=== PATIENT | female | born 1940 | race Caucasian/White ===

== ENCOUNTER 2017-09-08 08:52 | Inpatient (IN) | payer MEDICARE ==
[~2017-09-08] VITALS: Ht 152.4 cm; Wt 71.4 kg
[2017-09-08 09:23] VITALS: BP 150/60; PULSE 66; TEMP 97.9
[2017-09-08] MEDS ORDERED: TYLENOL 500MG500 MG PO (10:41)
[2017-09-08] MEDS ORDERED: ASPIRIN 81M81 MG/TA2 PO (10:42)
[2017-09-08] MEDS ORDERED: PRAVACHOL 40MG40 MG PO (10:43)
[2017-09-08] MEDS ORDERED: NORVASC 5MG5 MG/TAB PO (10:44)
[2017-09-08] MEDS ORDERED: HCTZ 25MG TAB25 MG PO (10:45)
[2017-09-08] MEDS ORDERED: PRINIVIL40 MG PO (10:45)
[2017-09-08 11:17] LABS: BASO % 0.5 % (0.0-2.0); EOS # 0.2 (0.0-0.7); EOS % 2.7 % (0-4.0); GRAN # 3.5 (1.4-6.5); GRAN % 59.2 % (42.2-75.2); HEMATOCRIT 36.8 % (37.0-47.0); HEMOGLOBIN 11.5 g/dl (12.5-16.0); LYMPH # 1.7 (1.2-3.4); LYMPH % 28.2 % (20.0-51.0); MEAN CELL VOLUME 89 fl (80.0-100.0); MEAN CORPUSCULAR HEMOGLOBIN 28 pg (27.0-31.0); MEAN CORPUSCULAR HGB CONC 31 g/dl (33.0-37.0); MEAN PLATELET VOLUME 9.9 fl (7.4-10.4); MONO # 0.5 (0.1-0.6); MONO % 9.1 % (1.7-9.3); PLATELET COUNT 241 K/mm3 (130-400); RED BLOOD COUNT 4.13 M/mm3 (4.10-5.30); REDCELL DISTRIBUTION WIDTH-CV 13.6 % (11.5-14.5)
[2017-09-08 11:20] LABS: BILIRUBIN,TOTAL 0.5 mg/dL (0.0-1.0); CALCIUM 9.3 mg/dL (8.4-10.2); CREATININE, serum 1.08 mg/dL (0.52-1.25); POTASSIUM 3.8 mmol/L (3.4-5.0); TOTAL PROTEIN 7.5 gm/dL (6.4-8.2)
[2017-09-08 16:49] VITALS: BP 172/70; PULSE 67; TEMP 97.9
[2017-09-08 19:38] VITALS: BP 154/53; PULSE 66; TEMP 98.2
[2017-09-08 23:55] LABS: PTH,INTACT 69.6 pg/mL (6.6-88.9)
[2017-09-09 00:55] VITALS: BP 134/50; PULSE 72; TEMP 98.2
[2017-09-09 04:20] VITALS: BP 122/55; PULSE 67; TEMP 98.2
[2017-09-09 06:57] LABS: BASO # 0.1 (0.0-0.2); BASO % 0.7 % (0.0-2.0); EOS # 0.2 (0.0-0.7); EOS % 2.7 % (0-4.0); GRAN # 5.2 (1.4-6.5); LYMPH % 24.1 % (20.0-51.0); MEAN CELL VOLUME 87 fl (80.0-100.0); MEAN CORPUSCULAR HEMOGLOBIN 28 pg (27.0-31.0); MEAN CORPUSCULAR HGB CONC 32 g/dl (33.0-37.0); MEAN PLATELET VOLUME 10.2 fl (7.4-10.4); MONO # 0.8 (0.1-0.6); MONO % 9.1 % (1.7-9.3); PLATELET COUNT 223 K/mm3 (130-400); RED BLOOD COUNT 3.94 M/mm3 (4.10-5.30); REDCELL DISTRIBUTION WIDTH-CV 13.5 % (11.5-14.5)
[2017-09-09 07:03] LABS: HEMATOCRIT 34.2 % (37.0-47.0)
[2017-09-09 07:08] VITALS: BP 159/59; PULSE 72; TEMP 98.4
[2017-09-09 07:10] LABS: CALCIUM 9.1 mg/dL (8.4-10.2); CREATININE, serum 0.97 mg/dL (0.52-1.25); POTASSIUM 3.6 mmol/L (3.4-5.0)
[2017-09-09 13:00] VITALS: BP 140/55; PULSE 69; TEMP 98.3
[2017-09-09] MEDS ORDERED: CEFTIN500 MG PO (13:49)
[2017-09-09] MEDS ORDERED: K-DUR 10 MEQ T10 MEQ PO (13:50)
[2017-09-09] MEDS ORDERED: LASIX 20MG TABL20 MG PO (13:50)
== END 2017-09-09 18:04 | disposition home or self-care (01) | DRG 641 ==
LOC: MEDICAL 08:52
PROVIDERS: Physician Assistant
DX: E83.52 Hypercalcemia (principal); N39.0 Urinary tract infection, site not specified; I10 Essential (primary) hypertension; Z86.73 Personal history of transient ischemic attack (TIA), and cerebral infarction without residual deficits; R29.810 Facial weakness
CPT/HCPCS: 99223-AI; 99233-AI; 99239; A9503; A9585; J0696; J1644; Q9967

== ENCOUNTER 2020-12-20 09:51 | Inpatient (IN) | payer MEDICARE ==
[~2020-12-20] VITALS: Ht 157.5 cm; Wt 79.5 kg
[~2020-12-20 09:51] MED LIST: ASPIRIN 81M81 MG/TA2 PO; CEFTIN500 MG PO; HCTZ 25MG TAB25 MG PO; K-DUR 10 MEQ T10 MEQ PO; LASIX 20MG TABL20 MG PO; NORVASC 5MG5 MG/TAB PO; PRAVACHOL 40MG40 MG PO; PRINIVIL40 MG PO; TYLENOL 500MG500 MG PO
[2020-12-20] MEDS ORDERED: HYDRODIURIL50 MG PO (10:30)
[2020-12-20 10:39] LABS: HEMATOCRIT 41.3 % (37.0-47.0); HEMOGLOBIN 13.6 g/dl (12.5-16.0); MEAN CELL VOLUME 84 fl (80.0-100.0); MEAN CORPUSCULAR HEMOGLOBIN 28 pg (27.0-31.0); MEAN CORPUSCULAR HGB CONC 33 g/dl (33.0-37.0); MEAN PLATELET VOLUME 10.5 fl (7.4-10.4); PLATELET COUNT 211 K/mm3 (130-400); RED BLOOD COUNT 4.92 M/mm3 (4.10-5.30); REDCELL DISTRIBUTION WIDTH-CV 14.6 % (11.5-14.5)
[2020-12-20 10:53] LABS: ALBUMIN 3.7 gm/dL (3.4-4.8); BILIRUBIN,TOTAL 0.6 mg/dL (0.2-1.2); CALCIUM 8.9 mg/dL (8.4-10.2); CREATININE, serum 1.49 mg/dL (0.57-1.11); POTASSIUM 3.8 mmol/L (3.5-4.5); TOTAL PROTEIN 7.7 gm/dL (6.2-8.1)
[2020-12-20 11:13] LABS: TSH w REFLEX 1.863 uIU/mL (0.350-4.940)
[2020-12-20 11:15] LABS: BAND 3 % (0-10); LYMPHOCYTE 21 % (20.0-51.0); NEUTROPHILS 65 % (42.0-75.2); PLATELET ESTIMATE NORMAL (NORMAL)
[2020-12-20 11:16] LABS: TROPONIN-I 0.037 ng/mL (0.00-0.033)
[2020-12-20 11:53] LABS: COLLECTION METHOD CLEAN CATCH
[2020-12-20 12:18] LABS: MUCOUS Present /lpf; PH 5 (5-8); SQUAMOUS EPITHELIAL None Seen /hpf; URINE APPEARANCE Cloudy; URINE BACTERIA Moderate /hpf; URINE BILIRUBIN Negative (NEGATIVE); URINE BLOOD 1+ (NEGATIVE); URINE COLOR Yellow; URINE GLUCOSE Negative (NEGATIVE); URINE KETONE Trace (NEGATIVE); URINE LEUKOCYTE ESTERASE Negative (NEGATIVE); URINE NITRATE Negative (NEGATIVE); URINE PROTEIN(semi-quant) Negative (NEGATIVE); URINE RBC 0-2 /hpf; URINE UROBILINOGEN Negative (NEGATIVE)
[2020-12-20 12:43] LABS: PROTHROMBIN TIME 11.5 SECONDS (9.7-12.8)
[2020-12-20 12:46] LABS: PARTIAL THROMBOPLASTIN TIME 24.3 SECONDS (26.0-37.0)
--- NOTE | 2020-12-20 14:55 | NUR ---
Admission assessment completed, alert/oriented, vital signs stable, denies pain, reports general malaise and fatigue, heart RRR/distal pulses are palpable, lungs CTA/ no resp.difficulty noted and she is on room air, CT negative for PE, she denies any appetite but is tolerting PO fluid intake without any N/V, IVF started at this time through left wrist 20G IV, repeat troponin level drawn at this time, reviewed her meds/ allergies/ pharmacy, she denies other needs at this time, bed alarm on and call light in reach
[2020-12-20 16:40] VITALS: BP 136/63; PULSE 72; TEMP 98.9
[2020-12-20 19:42] VITALS: BP 172/80; PULSE 90; TEMP 97.9
--- NOTE | 2020-12-20 23:14 | NUR ---
ALERT AND OX4. DENIES SOA, CHEST PAIN OR DIZZY. PAIN IN LOWER LEGS CHRONIC. TYL GIVEN. PM MEDS GIVEN. POC DISUCCSED W PT AND SON ZINA OVER PHONE. UP TO VOID, PT VERY WEAK, COMMADE W ASST. IV FLUIDS RUNNING PER ORDER. TROP DRAWN. CALL LIGHT WI REACH. BED IN LOW POSTION. ISOLATION PRECAUTIONS FOLLOWED.
[2020-12-21] VITALS (9 sets, daily range): BP systolic 143–178; BP diastolic 57–99; PULSE 66–99; TEMP 97.4–99
--- NOTE | 2020-12-21 05:46 | NUR ---
Rested through the night without incident. Needs met.
[2020-12-21 07:22] LABS: MEAN CELL VOLUME 86 fl (80.0-100.0); MEAN CORPUSCULAR HGB CONC 32 g/dl (33.0-37.0); MEAN PLATELET VOLUME 10.2 fl (7.4-10.4); PLATELET COUNT 165 K/mm3 (130-400); RED BLOOD COUNT 3.91 M/mm3 (4.10-5.30); REDCELL DISTRIBUTION WIDTH-CV 14.7 % (11.5-14.5)
[2020-12-21 07:24] LABS: HEMATOCRIT 33.5 % (37.0-47.0); HEMOGLOBIN 10.8 g/dl (12.5-16.0); MEAN CORPUSCULAR HEMOGLOBIN 28 pg (27.0-31.0)
[2020-12-21 07:41] LABS: C-REACTIVE PROTEIN 1.6 mg/dL (0.00-0.50); CALCIUM 7.9 mg/dL (8.4-10.2); CREATININE, serum 0.98 mg/dL (0.57-1.11); MAGNESIUM 2.1 mg/dL (1.6-2.6); POTASSIUM 3.7 mmol/L (3.5-4.5)
--- NOTE | 2020-12-21 09:15 | NUR ---
Patient laying in bed upon entering the room. This RN assisted the patient with getting sat up in bed so she could eat breakfast. All morniing medications administered without difficulty, and shift assessment was completed. Patient c/o mild pain in her legs which she explains to be chronic.
--- NOTE | 2020-12-21 11:09 | NUR ---
Aids Nurse called patient and offered prayer and support.
--- NOTE | 2020-12-21 13:49 | NUR ---
Plan is to return home in [facility]. Sw met with patient about care. Patient report that her dtr Evelia Marcos resides across the street and can support her. Patient reports that she uses a walker and can. Patient dahres that her [place] [facility] [place] [facility] for medications and obtains them with out difficulty. Patient reports that she does not have any care concerns, Offered supports an educated on case management services. Will follow.
--- NOTE | 2020-12-21 18:14 | NUR ---
Patient has done well today, has required assistance to the restroom 3 times. Patient's VSS. Patient's only complaint has been about her chronic lower leg pain.
--- NOTE | 2020-12-21 20:20 | NUR ---
ALERT AND OX4. DENIES OF SOA, DIZZY OR CHEST PAIN. PAIN IN LOWER EXTREMITY BUT DENIES NEED FOR TYL. POOR APPETITE STILL AND FEELS WEAK. SON UPDATED AT SHIFT CHANGE. CALL LIGHT WI REACH. NEEDS MET.
[2020-12-22 00:16] VITALS: BP 150/69; PULSE 79; TEMP 98.7
[2020-12-22 04:20] VITALS: BP 164/76; PULSE 80; TEMP 98.5
--- NOTE | 2020-12-22 06:10 | NUR ---
RESTED THROUGH THE NIGHT WITHOUT INCIDENT. NEEDS MET.
[2020-12-22 07:43] LABS: BASO % 0.2 % (0.0-2.0); EOS % 0.2 % (0-4.0); GRAN # 2.1 K/mm3 (1.4-6.5); GRAN % 43.4 % (42.2-75.2); HEMOGLOBIN 11.2 g/dl (12.5-16.0); LYMPH # 2.1 K/mm3 (1.2-3.4); LYMPH % 44.1 % (20.0-51.0); MEAN CELL VOLUME 88 fl (80.0-100.0); MEAN CORPUSCULAR HEMOGLOBIN 28 pg (27.0-31.0); MEAN CORPUSCULAR HGB CONC 32 g/dl (33.0-37.0); MEAN PLATELET VOLUME 10.3 fl (7.4-10.4); MONO # 0.6 K/mm3 (0.1-0.6); MONO % 11.7 % (1.7-9.3); PLATELET COUNT 179 K/mm3 (130-400); RED BLOOD COUNT 4.03 M/mm3 (4.10-5.30); REDCELL DISTRIBUTION WIDTH-CV 14.4 % (11.5-14.5)
[2020-12-22 07:44] LABS: HEMATOCRIT 35.3 % (37.0-47.0)
[2020-12-22 08:08] LABS: C-REACTIVE PROTEIN 2.3 mg/dL (0.00-0.50); CALCIUM 8.6 mg/dL (8.4-10.2); CREATININE, serum 0.86 mg/dL (0.57-1.11); POTASSIUM 3.7 mmol/L (3.5-4.5)
[2020-12-22 08:48] VITALS: BP 162/59; PULSE 69; TEMP 98.8
--- NOTE | 2020-12-22 09:29 | NUR ---
Patient laying in bed upon entering the room and has no complaints. Patient does seem to have a bit of a flat affect and stated, "I'm getting out of this hospital come hell or high water". This RN explained to the patient why she was still in the hospital. This RN also opened the blinds in the room and turned the patient's TV on. This seemed to make the patient feel a little bit better.
[2020-12-22 12:41] VITALS: BP 140/64; PULSE 86; TEMP 98.8
--- NOTE | 2020-12-22 16:15 | NUR ---
Patient discharged at approx. 1450. Escorted out by this RN and a PCT via wheelchair.
--- NOTE | 2020-12-23 12:43 | NUR ---
floor worker transfer bay contacted patient's daughter, Evelia and discussed home health and what services they can provide. 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 Evelia stated that she spoke to Dr Olmedo's nurse and discussed home health and she is aware that she can reach out to get this service started if necessary. Worker contacted provider, Blanca, and advised of the above information.
== END 2020-12-22 14:50 | disposition home health service (06) | DRG 178 ==
LOC: COL.ER 09:51 → MEDICAL 11:25 → COL.ER 11:25 → MEDICAL 11:25
PROVIDERS: Emergency Medicine; ADMIT Internal Medicine
DX: U07.1 COVID-19 (principal); N17.9 Acute kidney failure, unspecified; I24.8 Other forms of acute ischemic heart disease; R55 Syncope and collapse; M19.90 Unspecified osteoarthritis, unspecified site; Z86.73 Personal history of transient ischemic attack (TIA), and cerebral infarction without residual deficits; E78.5 Hyperlipidemia, unspecified; E86.0 Dehydration; R19.7 Diarrhea, unspecified; Z90.49 Acquired absence of other specified parts of digestive tract; Z90.710 Acquired absence of both cervix and uterus; M81.0 Age-related osteoporosis without current pathological fracture; Z79.82 Long term (current) use of aspirin; Z66 Do not resuscitate
CPT/HCPCS: 99222-AI; 99232-AI; 99233-AI; 99239; C9113; J1644; J7030; Q9967